=== PATIENT | female | born 1955 | race Caucasian/White ===

== ENCOUNTER → 2019-09-28 | Day surgery (SDC) | payer MEDICARE ==
[~2019-09-28] MED LIST: ALPR0.254 PO; BUPR100T6 PO; CRESTOR20 MG PO; CRESTOR40 MG PO; ESOM40CA PO; EZET10TA20 PO; GLYCOPYRROLATE 1 MG/5 ML VIAL. ONE; IV RINGERS,LACTATED 1000ML 1,000 ML IV ONE; LIDOCAINE 2% PF 5 ML VIAL. ONE; LISI-130 PO; LOSA100T14 PO; PROPOFOL 60 ML IV ONE; SERT100T PO; SERT50TA8 PO; calcium
[2019-09-28 10:10] VITALS: BP 154/74
--- NOTE | 2019-09-28 12:32 | CONS ---
DATE OF CONSULTATION: 09/28/2019 REFERRING PHYSICIAN: Jackelin Coker NP REASON FOR CONSULTATION: Left upper quadrant abdominal pain as well as history of colonic polyps. HISTORY OF PRESENT ILLNESS: This is a 64-year-old female with past medical history significant for anxiety, colon polyps, depression, and GERD, seen with ongoing issues with pain. She has had no diarrhea or constipation. Weight has been stable. She does have early satiety with meals. Increased heartburn was noted despite omeprazole. Bowel habits have been unchanged. Previous imaging did reveal hepatic hemangioma. With continued issues, she requests additional evaluation. PAST MEDICAL HISTORY: Significant for GERD, anxiety, colonic polyps, and depression. ALLERGIES: None. MEDICATIONS: Include Nexium 40 mg daily and sertraline 50 mg daily. FAMILY AND SOCIAL HISTORY: She is a nonsmoker. health information director. She does not drink. PAST SURGICAL HISTORY: Significant for cholecystectomy, hysterectomy, tonsillectomy, rectal prolapse repair, and pituitary tumor removal. REVIEW OF SYSTEMS: Per records. PHYSICAL EXAMINATION: GENERAL: Reveals a well-nourished and well-developed female. VITAL SIGNS: Temperature is 97.7, pulse 79, and respirations 20. LUNGS: Clear. CARDIOVASCULAR: Reveals an S1, S2 without S3, S4, or appreciable murmur. ABDOMEN: With a soft abdomen and normoactive bowel sounds without appreciable hepatosplenomegaly. EXTREMITIES: Reveal no cyanosis, clubbing, or edema. IMPRESSION AND PLAN: 1. History of colonic polyps. Surveillance colonoscopy is recommended at this time. Risks and benefits were discussed. The patient is willing to proceed. 2. Left upper quadrant abdominal pain, status post cholecystectomy, etiology to be determined. Differential does include peptic ulcer disease, gastroparesis, celiac disease, and malignancy. Therefore, I recommend upper endoscopy. Risks and benefits were discussed. The patient is willing to proceed. GLENN DICKINSON MD DR: BRIJESH/juliet JOB#: [id number] / [id number]
--- NOTE | 2019-10-01 15:07 | PATHOLOGY ---
[facility] Accession Number: [id number] . 01 Material submitted: . rectum - RECTAL POLYP . 01 Clinical history: . Abdominal pain; history of polyps . 02 Diagnosis: Colorectal biopsy, rectal polyp: - Hyperplastic polyp. ([facility] 10/01/2019 1024 Local . 02 Comment: There are no adenomatous changes or evidence of malignancy. ([facility]01/2019) . 02 Electronically signed: . Eleazar Simmons MD, Pathologist NPI- [id number] . 01 Gross description: . The specimen is received in formalin, labeled "Lea Gonzalez, rectal polyp". Received is a segment of pale bowen soft tissue measuring 0.6 cm in maximum dimensions. The specimen is submitted entirely in cassette A1. ([facility]; 09/28/2019) [facility] 09/28/2019 1907 Local . 02 Pathologist provided ICD-10: K62.1 . 02 CPT . 249013 Specimen Comment: A courtesy copy of this report has been sent to [phone] Specimen Comment: [phone], Specimen Comment: Report sent to ,DR BAIG / DR AYON Performed at: 01 [facility] [address], [place] [id number] MD Gagandeep Bartholomew MD Phone: [phone] Performed at: 02 [facility] [address], [place] [id number] MD Eleazar Simmons MD Phone: [phone]
== END ==
LOC: ENDOS 07:20
PROVIDERS: ATTEND Internal Medicine Gastroenterology
DX: R10.12 Left upper quadrant pain (principal); K29.50 Unspecified chronic gastritis without bleeding; K62.1 Rectal polyp; K57.30 Diverticulosis of large intestine without perforation or abscess without bleeding; K64.0 First degree hemorrhoids; F41.9 Anxiety disorder, unspecified; F32.9 Major depressive disorder, single episode, unspecified; G43.909 Migraine, unspecified, not intractable, without status migrainosus; I10 Essential (primary) hypertension; E78.00 Pure hypercholesterolemia, unspecified; I25.2 Old myocardial infarction; K21.9 Gastro-esophageal reflux disease without esophagitis; E66.9 Obesity, unspecified; Z68.35 Body mass index [BMI] 35.0-35.9, adult; Z86.010 Personal history of colon polyps; Z90.49 Acquired absence of other specified parts of digestive tract; Z90.710 Acquired absence of both cervix and uterus; Z98.890 Other specified postprocedural states
CPT/HCPCS: 43235; 45380; J2001; J2704; J3490

== ENCOUNTER → 2019-12-14 | Outpatient (CLI) | payer MEDICARE ==
[2019-09-28 10:10] VITALS: BP 154/74
[~2019-12-14] MED LIST changes: -GLYCOPYRROLATE 1 MG/5 ML VIAL. ONE; -IV RINGERS,LACTATED 1000ML 1,000 ML IV ONE; -LIDOCAINE 2% PF 5 ML VIAL. ONE; -PROPOFOL 60 ML IV ONE
--- NOTE | 2019-12-14 09:26 | RAD ---
CLINICAL HISTORY: Reason: abdomen pain x 1 year, incomplete colonoscopy 09-28-19 DATE: 12/14/2019 8:30 AM COMPARISON: None available. TECHNIQUE: A single contrast lower GI study was performed using barium contrast per clinical request. A rectal tube was inserted in the rectum and contrast was administered via gravity in a retrograde fashion. Images of contrast filled colon and a post evacuation image of the colon were obtained. Fluroscopy time was 0.8 minutes minutes. Number of images: 19 FINDINGS:The printing and stamping supervisor film demonstrated a nonobstructive bowel gas pattern and there were no abnormal calcifications and no abnormal soft tissue mass effect seen. The entire colon was filled with contrast. The large bowel caliber is normal. . The cecum was located in the right lower quadrant. Distal small bowel loop was opacified. There were no constricting or obstructing lesions in the colon. On this single contrast examination, no obvious luminal lesion was identified. Post evacuation film showed no abnormality. IMPRESSION: Essentially normal single contrast barium enema without obvious constricting lesion or luminal mass. Electronically signed by: Jovan Guerrero MD (12/14/2019 9:24 AM) [facility]
== END | disposition home or self-care (01) ==
LOC: RAD 08:30
PROVIDERS: ATTEND Internal Medicine Gastroenterology
DX: R10.9 Unspecified abdominal pain (principal)
CPT/HCPCS: 74270